=== PATIENT | female | born 1990 | race Caucasian/White ===

== ENCOUNTER 2017-07-25 17:55 | Emergency (ER) | payer MEDICAID ==
[~2017-07-25] VITALS: Ht 149.9 cm; Wt 64.9 kg
[2017-07-25 18:16] VITALS: BP 119/77
[2017-07-25 19:09] LABS: BASOPHIL % 0.3 % (0-2); PLATELET COUNT 290 x10^3mcL (130-400); RED CELL DISTRIBUTION WIDTH 13.4 % (11.5-14.5)
[2017-07-25 19:17] LABS: CALCIUM 9.2 mg/dL (8.5-10.1); CARBON DIOXIDE 27.4 mmol/L (21-32); CHLORIDE SERUM 102 mmol/L (98-107); CREATININE SERUM 0.7 mg/dL (0.6-1.0); GFR1 > 60 mL/min; GLUCOSE SERUM 87 mg/dL (74-106); POTASSIUM SERUM 3.6 mmol/L (3.5-5.1); SODIUM SERUM 138 mmol/L (136-145)
[2017-07-25 19:23] LABS: ALKALINE PHOSPHATASE 80 U/L (46-116); ALT/SGPT 55 U/L (14-59); AST/SGOT 24 U/L (15-37); BILIRUBIN TOTAL 0.6 mg/dL (0.20-1.00); LIPASE 201 IU/L (73-393)
[2017-07-25 19:24] LABS: TOTAL PROTEIN, SERUM 8.4 g/dL (6.4-8.2)
== END 2017-07-25 20:45 | disposition home or self-care (01) ==
LOC: ED 17:55
PROVIDERS: Emergency Medicine
DX: R10.33 Periumbilical pain (principal); R19.7 Diarrhea, unspecified; R51 Headache; R11.10 Vomiting, unspecified
CPT/HCPCS: 36415

== ENCOUNTER 2018-10-26 19:53 | Emergency (ER) | payer MEDICAID ==
[~2018-10-26] VITALS: Ht 149.9 cm; Wt 63.0 kg
[2018-10-26 20:02] VITALS: Ht 149.9 cm; Wt 63.0 kg
[2018-10-27 01:19] VITALS: BP 104/78
== END 2018-10-27 01:19 | disposition home or self-care (01) ==
LOC: ED 19:53
DX: K52.9 Noninfective gastroenteritis and colitis, unspecified (principal)
CPT/HCPCS: 87046; 87046-59; Q0092

== ENCOUNTER 2020-07-15 14:30 | Emergency (ER) | payer MEDICAID ==
[~2020-07-15] VITALS: Ht 149.9 cm; Wt 62.6 kg
[2020-07-15 15:50] LABS: CALCIUM 8.3 mg/dL (8.5-10.1); CARBON DIOXIDE 27.5 mmol/L (21-32); CHLORIDE SERUM 106 mmol/L (98-107); CREATININE SERUM 0.7 mg/dL (0.6-1.0); GFR1 > 60 mL/min; GLUCOSE SERUM 86 mg/dL (74-106); POTASSIUM SERUM 3.3 mmol/L (3.5-5.1); SODIUM SERUM 140 mmol/L (136-145)
[2020-07-15 15:55] LABS: ALBUMIN 3.8 g/dL (3.4-5.0); ALKALINE PHOSPHATASE 54 U/L (46-116); ALT/SGPT 21 U/L (14-59); AST/SGOT 17 U/L (15-37); BASOPHIL % 0.4 % (0-2); BILIRUBIN TOTAL 0.5 mg/dL (0.20-1.00); PLATELET COUNT 302 x10^3mcL (130-400); RED CELL DISTRIBUTION WIDTH 13.6 % (11.5-14.5); TOTAL PROTEIN, SERUM 7.1 g/dL (6.4-8.2)
[2020-07-15 17:34] VITALS: BP 111/71
== END 2020-07-15 17:34 | disposition home or self-care (01) ==
LOC: ED 14:30
PROVIDERS: Specialist
DX: E87.6 Hypokalemia (principal); R53.1 Weakness; L29.9 Pruritus, unspecified
CPT/HCPCS: Q0092